=== PATIENT | male | born 1935 | race Caucasian/White ===

== ENCOUNTER → 2016-11-02 | Outpatient (CLI) | payer MEDICARE, BC ==
[~2016-11-02] MED LIST: ATOR20TA PO; CALC-72 PO; MULT-658 PO; OMNIPAQUE 350 MG/ML, 100ML BOTTLE ONE; OXYC-302 PO; PRED-402 PO; TURM500C7 PO
== END | disposition home or self-care (01) ==
LOC: CFH 09:43
PROVIDERS: ATTEND Internal Medicine Hematology & Oncology
DX: C43.9 Malignant melanoma of skin, unspecified (principal); R91.1 Solitary pulmonary nodule; J47.9 Bronchiectasis, uncomplicated; J98.11 Atelectasis; N62 Hypertrophy of breast; I70.0 Atherosclerosis of aorta; M47.899 Other spondylosis, site unspecified; K57.30 Diverticulosis of large intestine without perforation or abscess without bleeding; I72.3 Aneurysm of iliac artery; N40.0 Benign prostatic hyperplasia without lower urinary tract symptoms; K40.20 Bilateral inguinal hernia, without obstruction or gangrene, not specified as recurrent; K76.0 Fatty (change of) liver, not elsewhere classified; Z90.49 Acquired absence of other specified parts of digestive tract; Z90.5 Acquired absence of kidney
CPT/HCPCS: 71260; 74177; Q9967

== ENCOUNTER → 2017-01-27 | Outpatient (CLI) | payer MEDICARE, BC | END | disposition home or self-care (01) | LOC: CFH 13:51 | PROVIDERS: ATTEND Internal Medicine Hematology & Oncology | DX: C43.9 Malignant melanoma of skin, unspecified (principal); R91.1 Solitary pulmonary nodule; R19.09 Other intra-abdominal and pelvic swelling, mass and lump; M47.896 Other spondylosis, lumbar region; K57.30 Diverticulosis of large intestine without perforation or abscess without bleeding | CPT/HCPCS: 71260; 74177; Q9967 ==

== ENCOUNTER → 2018-05-25 | Outpatient (CLI) | payer MEDICARE ==
[~2018-05-25] MED LIST changes: +CALC-534 PO; -CALC-72 PO
== END | disposition home or self-care (01) ==
LOC: CFH 09:58
PROVIDERS: ATTEND Internal Medicine Hematology & Oncology
DX: R91.8 Other nonspecific abnormal finding of lung field (principal); M79.89 Other specified soft tissue disorders; C43.9 Malignant melanoma of skin, unspecified; Z90.5 Acquired absence of kidney
CPT/HCPCS: 71260; 74177; 82565; Q9967

== ENCOUNTER → 2018-12-14 | Outpatient (CLI) | payer MEDICARE | END | disposition home or self-care (01) | LOC: CFH 10:58 | PROVIDERS: ATTEND Internal Medicine Hematology & Oncology | DX: C43.9 Malignant melanoma of skin, unspecified (principal); R91.8 Other nonspecific abnormal finding of lung field; J98.4 Other disorders of lung; K57.30 Diverticulosis of large intestine without perforation or abscess without bleeding; K40.90 Unilateral inguinal hernia, without obstruction or gangrene, not specified as recurrent; M85.88 Other specified disorders of bone density and structure, other site; M47.816 Spondylosis without myelopathy or radiculopathy, lumbar region; R19.09 Other intra-abdominal and pelvic swelling, mass and lump | CPT/HCPCS: 71260; 74177; Q9967 ==

== ENCOUNTER → 2019-07-22 | Outpatient (CLI) | payer BC, MEDICARE | END | disposition home or self-care (01) | LOC: CFH 09:38 | PROVIDERS: ATTEND Internal Medicine Hematology & Oncology | DX: C43.9 Malignant melanoma of skin, unspecified (principal); R91.8 Other nonspecific abnormal finding of lung field; R19.00 Intra-abdominal and pelvic swelling, mass and lump, unspecified site | CPT/HCPCS: 71260; 74177; Q9967 ==

== ENCOUNTER → 2020-06-29 | Outpatient (CLI) | payer MEDICARE | END | disposition home or self-care (01) | LOC: CFH 11:18 | PROVIDERS: ATTEND Internal Medicine Hematology & Oncology | DX: C43.9 Malignant melanoma of skin, unspecified (principal); K40.90 Unilateral inguinal hernia, without obstruction or gangrene, not specified as recurrent; K57.90 Diverticulosis of intestine, part unspecified, without perforation or abscess without bleeding; R91.8 Other nonspecific abnormal finding of lung field; I71.4 Abdominal aortic aneurysm, without rupture | CPT/HCPCS: 71260; 74177; Q9967 ==